=== PATIENT | female | born 1955 | race Caucasian/White ===

== ENCOUNTER 2024-04-18 14:02 | Emergency (ER) | payer BC ==
--- NOTE | 2024-04-18 14:37 | ED Physician Documentation ---
PD HPI ALTERED MENTAL STATUS - Stated complaint Stated Complaint: CONFUSION,MEMORY LOSS,DISORIENTED - Chief complaint Chief Complaint: Neuro - History obtained from History obtained from: Patient - History of Present Illness Timing - onset: How many hours ago (09/22), Today Timing - duration: Hours (09/22) Timing - details: Abrupt onset, Still present Quality / character: Disoriented (she abruptly had deficit of memory, not being sure where she was, recent events and even sequence of events/activites the past week or so. Was exercising with friend but not excessive tiredness, no head injury Had felt okay the past couple days without fevers, vomiting, etc. No focal weakness noted.) Associated symptoms: No: Fever, Headache Contributing factors: No: Anticoagulated, Diabetic, New medication, Recent injury, Intoxicated Basline status: Alert and oriented X 3, Ambulatory Recently seen: Not recently seen Review of Systems Constitutional: denies: Fever, Chills Eyes: denies: Loss of vision, Decreased vision Nose: denies: Rhinorrhea / runny nose, Congestion Throat: denies: Sore throat Respiratory: denies: Cough Neurologic: denies: Focal weakness, Numbness, Near syncope, Headache, Head injury PD PAST MEDICAL HISTORY - Past Medical History Past Medical History: Yes Cardiovascular: Hypertension Neuro: None - Past Surgical History Past Surgical History: No - Present Medications Home Medications: Ambulatory Orders Medication Instructions Recorded Confirmed LORazepam [Ativan] 1 mg PO Q8H PRN #5 tablet 04/18/24 - Allergies Allergies/Adverse Reactions: Allergies Allergy/AdvReac Type Severity Reaction Status Date / Time No Known Drug Allergies Allergy Verified 04/18/24 14:23 - Social History Does the pt smoke?: No Smoking Status: Never smoker Does the pt drink ETOH?: Yes ETOH Use: Wine Does the pt have substance abuse?: No - Immunizations Immunizations are current?: Yes - POLST Patient has POLST: No PD ED PE NORMAL - Vitals Vital signs reviewed: Yes - General General: Alert and oriented X 3, Well developed/nourished, Other (anxious and crying about not being able to remember current and recent events. She does not remember comgint to ER. Does not remember where she is (visiting friend here on [place]). She can remeber her home address, etc. 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 No: Alert and oriented X 3 (does not remember current location nor day of week.) NIHSS - Level of Consciousness Level of consciousness: (0) Alert, Keenly responsive LOC Questions: (0) Answers both Q's correct LOC Commands: (0) Performs both correctly - Gaze Best Gaze: (0) Normal - Visual Visual: (0) No loss - Facial Palsy Facial Palsy: (0) Normal, symmetrical movement - Motor Arms (both separate) Motor Arm (right): (0) No drift Motor Arm (left): (0) No drift - Motor Legs (both separate) Motor Leg (right): (0) No drift Motor Leg (left): (0) No drift - Limb Ataxia Limb Ataxia: (0) Absent - Sensory Sensory: (0) Normal - Best Language Best Language: (0) No aphasia - Dysarthria Dysarthria: (0) Normal - Extinction and Inattention (formally neg Extinction and inattention: (0) No abnormality - Total Score/Results Total Score/Result: 0 Results - Vitals Vitals: Vital Signs - 24 hr 04/18/24 04/18/24 04/18/24 14:16 15:23 16:00 Temperature 36.6 C Heart Rate 107 H 90 91 Respiratory 18 16 22 Rate Blood Pressure 202/109 H 169/85 H 162/85 H O2 Saturation 99 100 99 04/18/24 16:30 Temperature Heart Rate 92 Respiratory 16 Rate Blood Pressure 158/71 H O2 Saturation 98 Oxygen O2 Source Room air - Labs Labs: Laboratory Tests 04/18/24 04/18/24 04/18/24 14:25 14:25 14:25 WBC 7.7 RBC 4.62 Hgb 14.9 Hct 44.6 MCV 96.5 MCH 32.3 H MCHC 33.4 RDW 11.8 L Plt Count 252 MPV 8.8 Neut # (Auto) 5.0 Lymph # (Auto) 2.1 [place] # (Auto) 0.4 Eos # (Auto) 0.1 Baso # (Auto) 0.0 Absolute Nucleated RBC 0.00 Nucleated RBC % 0.0 ESR 6 Sodium 134 L Potassium 3.7 Chloride 98 L Carbon Dioxide 27 Anion Gap 9.0 BUN 12 Creatinine 0.9 Estimated GFR (MDRD) 63 L Glucose 114 H Calcium 10.1 Magnesium 1.7 Total Bilirubin 0.8 AST 23 ALT 16 Alkaline Phosphatase 69 Total Protein 7.6 Albumin 4.8 Globulin 2.8 Albumin/Globulin Ratio 1.7 Lipase 26 - Rads (name of study) head CT and angio Relevant Findings:: Discussed with rads (no acute process on either study. ) PD Medical Decision Making - ED course Complexity details: re-evaluated patient (pt given Ativan to help with anxiety of this. More relaxed for awhile. Still no focal deficits. Memory not improved as yet. She and her friend are comfortable going home. Will return if new symptoms. ), considered differential (abrupt loss of memory for recent and current activities. No other neuro loss. It would seem most likely TGA. Can get CT and labs to look for mimics. Otherwise mostly just time to see if symptoms improve. Most commonly within 1-2 days. ), d/w patient, other (her friend) Departure - Departure Disposition: 01 Home, Self Care Clinical Impression: Memory deficit, TGA (transient global amnesia) Condition: Stable Record reviewed to determine appropriate education?: Yes Prescriptions: LORazepam [Ativan] 1 mg PO Q8H PRN #5 tablet PRN Reason: Anxiety Comments: Your CT and angiogram as well as basic blood tests including CBC and chemistry panel and ESR are normal. No signs of alternative reasons for your "confusion" and memory loss. It does sound like a condition called transient global amnesia. Typically symptoms of this (the memory deficit) improves and gets back to normal typically within 12 to 24 hours. Literature and article suggested can be even a day or 2 sometimes. Typically is not longer than that. Having the memory deficit and being aware of that can be anxiety provoking. I did write for medication lorazepam/Ativan to use every 6-8 hours if needed for anxiety or sleep. I would anticipate this just over the next day or so. Maintain regular hydration. Light activity is okay. Return to the ER if not completely resolved in the next day or 2. I sent your prescription to [facility] pharmacy. Forms: PCP List Discharge Date/Time: 04/18/24 17:29
[2024-04-18] MEDS ORDERED: iohexoL-300 100 ML VIAL ONE (14:40)
[2024-04-18 14:52] LABS: BASOPHILS % (AUTO) 0.3 %; EOSINOPHILS # (AUTO) 0.1 10^3/uL (0.0-0.7); EOSINOPHILS % (AUTO) 0.8 %; HCT - HEMATOCRIT 44.6 % (37.0-47.0); HGB - HEMOGLOBIN 14.9 g/dL (12.0-16.0); LYMPHOCYTES # (AUTO) 2.1 10^3/uL (1.5-3.5); LYMPHOCYTES % (AUTO) 27.7 %; MEAN CORPUSCULAR HEMOGLOBIN 32.3 pg (27.0-31.0); MEAN CORPUSCULAR HGB CONC 33.4 g/dL (32.0-36.0); MEAN CORPUSCULAR VOLUME 96.5 fL (81.0-99.0); MEAN PLATELET VOLUME 8.8 fL (7.9-10.8); MONOCYTES # (AUTO) 0.4 10^3/uL (0.0-1.0); MONOCYTES % (AUTO) 5.6 %; NEUTROPHILS % (AUTO) 65.5 %; PLT - PLATELET COUNT 252 10^3/uL (130-450); RED BLOOD COUNT 4.62 10^6/uL (4.20-5.40); RED CELL DISTRIBUTION WIDTH 11.8 % (12.0-15.0); WHITE BLOOD COUNT 7.7 x10^3/uL (4.8-10.8)
--- NOTE | 2024-04-18 14:57 | CT Report ---
PROCEDURE: Head W/O Stroke Protocol INDICATIONS: acute memory deficit TECHNIQUE: Noncontrast 4.5 mm thick angled axial sections acquired from the foramen magnum to the vertex, with c oronal reformats. For radiation dose reduction, the following was used: automated exposure control, adjustment of mA and/or kV according to patient size. COMPARISON: None. FINDINGS: Image quality: Excellent. CSF spaces: Basal cisterns are patent. No extra-axial fluid collections. Ventricles are normal in size and shape. Brain: No midline shift. No intracranial masses or hemorrhage. Alexis-white matter interface is norm al. Skull and face: Calvarium and visualized facial bones are intact, without suspicious lesions. Sinuses: Visualized sinuses and mastoids are clear. IMPRESSION: No acute intracranial pathology Findings were discussed with ordering provider on 04/18/2024 at 2:55 PM. This study fulfills neurological imaging criteria for inclusion or exclusion of acute stroke therapie s based on available published neurological imaging guidelines. Reviewed by: Carlton Thomas MD on 04/18/2024 2:55 PM PDT Approved by: Carlton Thomas MD on 04/18/2024 2:55 PM PDT Station ID: [id number]
[2024-04-18] MEDS: SODIUM CHLORIDE 0.9% 1,000 ML IV STA (15:01)
[2024-04-18] MEDS: LORazepam 2 MG/ML VIAL IVP STA ×2 (15:01→17:03)
[2024-04-18 15:06] LABS: ALBUMIN 4.8 g/dL (3.2-5.5); ALBUMIN/GLOBULIN RATIO 1.7 (1.0-2.2); BILIRUBIN,TOTAL 0.8 mg/dL (0.2-1.0); CALCIUM 10.1 mg/dL (8.5-10.3); CREATININE 0.9 mg/dL (0.6-1.3); MAGNESIUM 1.7 mg/dL (1.7-2.3); POTASSIUM 3.7 mmol/L (3.5-4.5); TOTAL PROTEIN 7.6 g/dL (6.4-8.9)
--- NOTE | 2024-04-18 15:08 | CT Report ---
PROCEDURE: Angio Head/Neck INDICATIONS: acute memory deficit TECHNIQUE: After the administration of intravenous contrast, 1 mm thick sections acquired from the aortic arch t hrough the [place]. 3-dimensional evznmcy-jtvyqiknl-sencfybfus (MIP) and/or volume renderin g reformats were acquired of the central intracranial vasculature and neck separately. For radiation dose reduction, the following was used: automated exposure control, adjustment of mA and/or kV acco rding to patient size. CONTRAST: 80ml [id number] COMPARISON: CT head from the same day. FINDINGS: Image quality: Diagnostic. HEAD CT: CSF Spaces: Basal cisterns are patent. No extra-axial fluid collections. Ventricles are normal in size and shape. Brain: No significant abnormality is seen for scanning technique. Skull and face: Calvarium and visualized facial bones appear intact, without suspicious lesions. Sinuses: Visualized sinuses and mastoids are clear. HEAD CT ANGIOGRAPHY: Anterior circulation: Intracranial internal carotid arteries are normal in size and flow. The flow within the paired anterior cerebral arteries is normal and symmetric. The flow within the middle cer ebral arteries is normal and symmetric. The anterior communicating artery is seen. No aneurysms are seen. Posterior circulation: Visualized portions of the vertebral arteries demonstrate normal caliber, and join to form a normal appearing basilar artery. Flow within the posterior cerebral arteries is norm al and symmetric. No aneurysms are seen. NECK CT ANGIOGRAPHY: Carotid system: The great vessels demonstrate a conventional anatomy as they arise from the aortic a rch. The origins of the common carotid arteries appear patent. The common carotid arteries demonstr ate normal caliber and courses. The bifurcation regions are both widely patent. The internal caroti d arteries demonstrate normal calibers and courses. Posterior circulation: The origins of the vertebral arteries both appear widely patent. The more dunlap perior extracranial portions of both vertebral arteries also demonstrate normal courses and calibers. They join to form a normal appearing basilar artery. Soft tissues: Visualized neck soft tissues demonstrate no suspicious abnormalities. Bones: No suspicious bony lesions. Visualized cervical spine appears normally aligned. IMPRESSION: No significant intracranial arterial abnormality is seen. No significant abnormality is seen within the arteries of the neck. The estimate of stenosis included in the report of the imaging study was calculated using the NASCET method Reviewed by: Carlton Thomas MD on 04/18/2024 3:07 PM PDT Approved by: Carlton Thomas MD on 04/18/2024 3:07 PM PDT Station ID: [id number]
[2024-04-18] MEDS: iohexoL-300 100 ML VIAL IVP ONE (15:25)
[2024-04-18 17:34] VITALS: BP 158/71; O2SAT 98
== END 2024-04-18 17:29 | disposition home or self-care (01) ==
LOC: ED 14:02
DX: G45.4 Transient global amnesia (principal); I10 Essential (primary) hypertension
CPT/HCPCS: 36415; 70450; 70496; 70498; 80053; 83690; 83735; 85025; 85651; 93005; 96361; 96374; 96376; 99284; J2060; Q9967